=== PATIENT | female | born 1985 | race American Indian/Alaskan Native ===

== ENCOUNTER 2016-12-03 05:21 | Emergency (ER) | payer SELFPAY ==
--- NOTE | 2016-12-03 07:05 | Emergency Department Report ---
ED Extremity Problem HPI - General Chief complaint: Back Pain/Injury Stated complaint: BACK/HEAD PAIN Time Seen by Provider: 12/03/16 06:54 Source: patient Mode of arrival: Ambulatory Limitations: No Limitations - Related Data Previous Rx's Medication Instructions Recorded Last Taken Type Cyclobenzaprine [Flexeril 10 MG 10 mg PO TID PRN #30 tablet 04/01/15 Unknown Rx TAB] HYDROcodone/APAP 5-325 [[place] 1 each PO Q6HR PRN #20 tablet 04/01/15 Unknown Rx 5-325 mg TAB] Ibuprofen [Motrin 800 MG tab] 800 mg PO Q8HR PRN #50 tablet 04/01/15 Unknown Rx Loratadine [Claritin] 10 mg PO DAILY #30 tablet 04/01/15 Unknown Rx Promethazine [Phenergan TAB] 25 mg PO Q6HR PRN #20 tab 04/01/15 Unknown Rx Sulfamethoxazole/Trimethoprim 1 each PO BID #20 tablet 04/01/15 Unknown Rx [Bactrim DS TAB] Allergies Allergy/AdvReac Type Severity Reaction Status Date / Time No Known Allergies Allergy Unverified 04/01/15 09:23 ED Review of Systems ROS: Stated complaint: BACK/HEAD PAIN Other details as noted in HPI ED Past Medical Hx - Past Medical History Previous Medical History?: Yes Hx Headaches / Migraines: Yes - Surgical History Past Surgical History?: Yes Hx Appendectomy: Yes - Social History Smoking Status: Never Smoker Substance Use Type: Alcohol - Medications Home Medications: Home Medications Medication Instructions Recorded Confirmed Last Taken Type Cyclobenzaprine [Flexeril 10 MG 10 mg PO TID PRN #30 tablet 04/01/15 Unknown Rx TAB] HYDROcodone/APAP 5-325 [[place] 1 each PO Q6HR PRN #20 tablet 04/01/15 Unknown Rx 5-325 mg TAB] Ibuprofen [Motrin 800 MG tab] 800 mg PO Q8HR PRN #50 tablet 04/01/15 Unknown Rx Loratadine [Claritin] 10 mg PO DAILY #30 tablet 04/01/15 Unknown Rx Promethazine [Phenergan TAB] 25 mg PO Q6HR PRN #20 tab 04/01/15 Unknown Rx Sulfamethoxazole/Trimethoprim 1 each PO BID #20 tablet 04/01/15 Unknown Rx [Bactrim DS TAB] ED Physical Exam - General Limitations: No Limitations ED Course Vital Signs 12/03/16 05:38 Temperature 98.7 F Pulse Rate 76 Respiratory 18 Rate Blood Pressure 117/64 O2 Sat by Pulse 100 Oximetry Critical care attestation.: If time is entered above; I have spent that time in minutes in the direct care of this critically ill patient, excluding procedure time. ED Disposition Condition: Stable
--- NOTE | 2016-12-03 07:28 | Emergency Department Report ---
ED Abdominal Pain HPI - General Chief Complaint: Back Pain/Injury Stated Complaint: BACK/HEAD PAIN Time Seen by Provider: 12/03/16 06:54 Source: patient Mode of arrival: Ambulatory Limitations: No Limitations - History of Present Illness Initial Comments: Patient here complaining of abdominal pain 2 days. She states she is having strong smell to her urine. Denies any fever or chills. Denies any nausea vomiting. She says she always gets headache and she's been treated with medication. Head pain is 6 out of 10 low back pain is 7 out of 10. She says she is having lower abdominal cramping on and off. Denies any urinary burning but reports urinary frequency. She medical history is migraine. MD Complaint: abdominal pain, other (Lower back pain) Onset/Timin -: days(s) Location: LLQ Radiation: none Severity: moderate Severity scale (0 -10): 7 Quality: cramping, aching Consistency: intermittent Improves With: nothing Worsens With: nothing Context: other (possible UTI) Associated Symptoms: denies: nausea, vomiting, diarrhea, fever, chills, constipation - Related Data LMP Date: 01/05/17 Previous Rx's Medication Instructions Recorded Last Taken Type Cyclobenzaprine [Flexeril 10 MG 10 mg PO TID PRN #30 tablet 04/01/15 Unknown Rx TAB] HYDROcodone/APAP 5-325 [[place] 1 each PO Q6HR PRN #20 tablet 04/01/15 Unknown Rx 5-325 mg TAB] Loratadine [Claritin] 10 mg PO DAILY #30 tablet 04/01/15 Unknown Rx Promethazine [Phenergan TAB] 25 mg PO Q6HR PRN #20 tab 04/01/15 Unknown Rx Sulfamethoxazole/Trimethoprim 1 each PO BID #20 tablet 04/01/15 Unknown Rx [Bactrim DS TAB] Ibuprofen [Motrin 800 MG tab] 800 mg PO Q8HR PRN #15 tablet 12/03/16 Unknown Rx Nitrofurantoin Stone/M-Cryst 100 mg PO Q12HR #14 capsule 12/03/16 Unknown Rx [Macrobid CAP] Allergies Allergy/AdvReac Type Severity Reaction Status Date / Time No Known Allergies Allergy Unverified 04/01/15 09:23 ED Review of Systems ROS: Stated complaint: BACK/HEAD PAIN Other details as noted in HPI Comment: All other systems reviewed and negative Constitutional: denies: chills, fever Eyes: denies: eye discharge ENT: denies: throat pain Respiratory: no symptoms reported Cardiovascular: denies: chest pain, palpitations, edema, syncope Gastrointestinal: abdominal pain. denies: nausea, vomiting Genitourinary: frequency. denies: urgency, dysuria, hematuria, discharge, abnormal menses Musculoskeletal: back pain. denies: arthralgia Skin: denies: rash Neurological: headache ED Past Medical Hx - Past Medical History Previous Medical History?: Yes Hx Headaches / Migraines: Yes - Surgical History Past Surgical History?: Yes Hx Appendectomy: Yes - Family History Family history: no significant - Social History Smoking Status: Never Smoker Substance Use Type: Alcohol - Medications Home Medications: Home Medications Medication Instructions Recorded Confirmed Last Taken Type Cyclobenzaprine [Flexeril 10 MG 10 mg PO TID PRN #30 tablet 04/01/15 Unknown Rx TAB] HYDROcodone/APAP 5-325 [[place] 1 each PO Q6HR PRN #20 tablet 04/01/15 Unknown Rx 5-325 mg TAB] Loratadine [Claritin] 10 mg PO DAILY #30 tablet 04/01/15 Unknown Rx Promethazine [Phenergan TAB] 25 mg PO Q6HR PRN #20 tab 04/01/15 Unknown Rx Sulfamethoxazole/Trimethoprim 1 each PO BID #20 tablet 04/01/15 Unknown Rx [Bactrim DS TAB] Ibuprofen [Motrin 800 MG tab] 800 mg PO Q8HR PRN #15 tablet 12/03/16 Unknown Rx Nitrofurantoin Stone/M-Cryst 100 mg PO Q12HR #14 capsule 12/03/16 Unknown Rx [Macrobid CAP] ED Physical Exam - General Limitations: No Limitations General appearance: alert, in no apparent distress - Head Head exam: Present: atraumatic, normocephalic - Expanded Head Exam Expanded Head exam: Absent: laceration, abrasion, contusion, hematoma, racoon eyes, barfield's sign, general tenderness, tenderness of temporal artery, CSF rhinorrhea , CSF otorrhea - Eye Eye exam: Present: normal appearance, PERRL, EOMI. Absent: periorbital swelling , periorbital tenderness Pupils: Present: normal accommodation - ENT ENT exam: Present: normal exam, normal orophraynx, mucous membranes moist, TM's normal bilaterally, normal external ear exam - Neck Neck exam: Present: normal inspection, full ROM. Absent: tenderness, lymphadenopathy - Respiratory Respiratory exam: Present: normal lung sounds bilaterally. Absent: respiratory distress, chest wall tenderness - Cardiovascular Cardiovascular Exam: Present: regular rate, normal rhythm, normal heart sounds - GI/Abdominal GI/Abdominal exam: Present: soft, normal bowel sounds. Absent: distended, tenderness, guarding, rebound, rigid - Extremities Exam Extremities exam: Present: normal inspection, full ROM, normal capillary refill. Absent: tenderness, pedal edema, calf tenderness - Back Exam Back exam: Present: full ROM. Absent: tenderness, CVA tenderness (R), CVA tenderness (L), muscle spasm, paraspinal tenderness, vertebral tenderness, rash noted - Neurological Exam Neurological exam: Present: alert, oriented X3, normal gait, reflexes normal. Absent: motor sensory deficit - Expanded Neurological Exam Expanded Neurological exam: Absent: innattentive, memory loss-remote event, memory loss- recent event, ataxia, receptive aphasia, expressive aphasia, total aphasia, tremor, protecting the airway Speech: Present: fluid speech Cranial nerves: EOM's Intact: Normal, Gag Reflex: Normal, Nystagmus: Normal, Facial Sensation: Normal Cerebellar function: Romberg: Normal Upper motor neuron: Pronator Drift: Normal, Sensory Extinction: Normal Sensory exam: Upper Extremity Light Touch: Normal, Upper Extremity Temperature: Normal, UE 2 Point Discrimination: Normal, Lower Extremity Light Touch: Normal, Lower Extremity Temperature: Normal, LE 2 Point Discrimination: Normal Motor strength exam: RUE: 5, LUE: 5, RLE: 5, LLE: 5 DTR: bicep (R): 2+, bicep (L): 2+, tricep (R): 2+, tricep (L): 2+, knee (R): 2+ , knee (L): 2+, ankle (R): 2+, ankle (L): 2+ Best Eye Response ([place]): (4) open spontaneously Best Motor Response ([place]): (6) obeys commands Best Verbal Response ([place]): (5) oriented [place] Total: 15 - Psychiatric Psychiatric exam: Present: normal affect, normal mood - Skin Skin exam: Present: warm, dry, intact, normal color. Absent: rash ED Course Vital Signs 12/03/16 05:38 Temperature 98.7 F Pulse Rate 76 Respiratory 18 Rate Blood Pressure 117/64 O2 Sat by Pulse 100 Oximetry - Reevaluation(s) Reevaluation #1: 12/03/16 09:05 Patient stable [facility] ED stay ED Medical Decision Making - Lab Data Lab Results 12/03/16 Range/Units 07:29 Urine Color Yellow (Yellow) Urine Turbidity Slightly-cloudy (Clear) Urine pH 5.0 (5.0-7.0) Ur Specific [place] 1.018 (1.003-1.030) Urine Protein <15 mg/dl (Negative) mg/dL Urine Glucose (UA) Neg (Negative) mg/dL Urine Ketones Neg (Negative) mg/dL Urine Blood Neg (Negative) Urine Nitrite Pos (Negative) Urine Bilirubin Neg (Negative) Urine Urobilinogen < 2.0 (<2.0) mg/dL Ur Leukocyte Esterase Mod (Negative) Urine WBC (Auto) 26.0 H (0.0-6.0) /HPF Urine RBC (Auto) 2.0 (0.0-6.0) /HPF U Epithel Cells (Auto) 9.0 (0-13.0) /HPF Urine Bacteria (Auto) 3+ (Negative) /HPF Urine Mucus Few /HPF Urine HCG, Qual Negative (Negative) Urine culture pending - Medical Decision Making ED course: I was orally challenged in emergency room and tolerated juices well. Patient with diagnosis of acute cystitis without hematuria, back pain and abdominal pain. I discussed diagnosis and treatment plan the patient and she is in agreement and was understanding. Discharged home with prescription for Macrobid, increase her fluid intake and to follow-up with her primary care physician in 2-3 days. Discharged home with prescription for Macrobid and Motrin Critical care attestation.: If time is entered above; I have spent that time in minutes in the direct care of this critically ill patient, excluding procedure time. ED Disposition Clinical Impression: Acute cystitis without hematuria Abdominal pain Qualifiers: Abdominal location: left lower quadrant Qualified Code(s): R10.32 - Left lower quadrant pain Lower back pain Qualifiers: Chronicity: acute Back pain laterality: bilateral Sciatica presence: without sciatica Qualified Code(s): M54.5 - Low back pain Disposition: DISCHARGED TO HOME OR SELFCARE Is pt being admited?: No Does the pt Need Aspirin: No Condition: Stable Instructions: Abdominal Pain (ED), Back Pain (ED), Urinary Tract Infection in Women (ED) Additional Instructions: Please increase her fluid intake to 2-3 L of fluid per day. Take antibiotic as prescribed. Follow-up with primary care physician in 2-3 days and the have one week and follow-up with [facility]. Prescriptions: Ibuprofen [Motrin 800 MG tab] 800 mg PO Q8HR PRN #15 tablet PRN Reason: Pain Nitrofurantoin Stone/M-Cryst [Macrobid CAP] 100 mg PO Q12HR #14 capsule Referrals: PRIMARY CARE, [Primary Care Provider] - 2-3 Days [facility] [Outside] - 2-3 Days Forms: Accompanied Note, Work/School Release Form(ED)
[2016-12-03 08:47] LABS: Bacteria,Urine 3+ /HPF (Negative); Bilirubin,Urine NEG (Negative); Blood,Urine NEG (Negative); Ketones,Urine NEG (Negative); Leukocyte Esterase,Urine MOD (Negative); Mucus,Urine FEW /HPF; Nitrite,Urine POS (Negative); Protein,Urine <15 mg/dL mg/dL (Negative); Urobilinogen,Urine < 2.0 mg/dL (<2.0)
[2016-12-03 09:25] VITALS: BP 110/69
== END 2016-12-03 09:12 | disposition home or self-care (01) ==
LOC: ED 05:21
DX: N30.00 Acute cystitis without hematuria (principal); R10.32 Left lower quadrant pain; M54.5 Low back pain; G43.909 Migraine, unspecified, not intractable, without status migrainosus
CPT/HCPCS: 81001; 81025; 87076; 87086; 87186; 99283

== ENCOUNTER 2018-03-06 09:58 | Emergency (ER) | payer OTHER ==
[2018-03-06] MEDS ORDERED: TORADOL IM ONE (12:33)
[2018-03-06] MEDS ORDERED: ULTRAM PO ONE (12:33)
[2018-03-06] MEDS ORDERED: ANTIVERT PO ONE ×2 (12:42→14:41)
[2018-03-06] MEDS ORDERED: NACL 0.9% 1000 ML 1,000 ML IV ONE (12:42)
--- NOTE | 2018-03-06 12:47 | Emergency Department Report ---
Blank Doc - Documentation Documentation: 32-year-old female presents to the hospital complaining of chest pain and dizziness 3 days. Patient has sternal chest pain that is constant, worse palpation. She has mild shortness of breath. Patient complains of lightheaded and like she is on a pass out and seeing stars with standing. Patient states perhaps she is not drinking enough fluids given. She denies recent travel, calf tenderness, edema, history of PE/DVT, hypertension, diabetes, elevated cholesterol, tobacco use, cocaine abuse. Orthostatics performed to ED if patient has significant dizziness with standing although orthostatics fairly unremarkable Patient has reproducible upper and mid sternal chest wall pain Lungs clear to auscultation No calf tenderness or edema I suspect the patient has costochondritis, however given symptoms labs, chest x- ray, medications ordered EKG sinus rhythm 67 without signs of stemi Mid-level to reevaluate
--- NOTE | 2018-03-06 12:52 | Emergency Department Report ---
ED Chest Pain HPI - General Chief Complaint: Chest Pain Stated Complaint: CHEST PAIN/DIZZY Time Seen by Provider: 03/06/18 12:33 Source: patient Mode of arrival: Ambulatory Limitations: No Limitations - History of Present Illness Initial Comments: 32-year-old female presents to the hospital complaining of chest pain and dizziness 3 days. Patient has sternal chest pain that is constant, worse palpation. She has mild shortness of breath. Patient complains of lightheaded and like she is on a pass out and seeing stars with standing. Patient states perhaps she is not drinking enough fluids given. She denies recent travel, calf tenderness, edema, history of PE/DVT, hypertension, diabetes, elevated cholesterol, tobacco use, cocaine abuse. MD Complaint: chest pain, other (Dizziness) Onset/Timin -: days(s) Onset: during rest Pain Location: substernal Pain Radiation: none Severity: severe Severity scale (0 -10): 9 Quality: tightness, aching Consistency: constant Improves With: nothing Worsens With: palpation, movement Context: other (unknown) re: other (dizziness. Feeling of passing out). denies: nausea, vomting, diaphoresis, dyspnea, sense of impending doom Other Symptoms: denies: cough, fever, syncope, rash, acid taste in mouth, leg swelling, palpitations, burping Treatments Prior to Arrival: none Aspirin use within the Past 7 Days: (0) No - Related Data On Oral Contraceptives: No (last menstrual period started 03/06/2018) Previous Rx's Medication Instructions Recorded Last Taken Type Cyclobenzaprine [Flexeril 10 MG 10 mg PO TID PRN #30 tablet 04/01/15 Unknown Rx TAB] HYDROcodone/APAP 5-325 [[place] 1 each PO Q6HR PRN #20 tablet 04/01/15 Unknown Rx 5-325 mg TAB] Loratadine [Claritin] 10 mg PO DAILY #30 tablet 04/01/15 Unknown Rx Promethazine [Phenergan TAB] 25 mg PO Q6HR PRN #20 tab 04/01/15 Unknown Rx Sulfamethoxazole/Trimethoprim 1 each PO BID #20 tablet 04/01/15 Unknown Rx [Bactrim DS TAB] Ibuprofen [Motrin 800 MG tab] 800 mg PO Q8HR PRN #15 tablet 12/03/16 Unknown Rx Nitrofurantoin [place]/M-Cryst 100 mg PO Q12HR #14 capsule 12/03/16 Unknown Rx [Macrobid CAP] Ibuprofen [Motrin] 600 mg PO Q8H PRN #12 tablet 03/06/18 Unknown Rx Meclizine [Antivert] 25 mg PO TID PRN #12 tablet 03/06/18 Unknown Rx Nitrofurantoin Monohyd/M-Cryst 100 mg PO Q12H 7 Days #14 capsule 03/06/18 Unknown Rx [Macrobid 100 mg Capsule] Allergies Allergy/AdvReac Type Severity Reaction Status Date / Time No Known Allergies Allergy Verified 03/06/18 10:22 Heart Score - HEART Score History: Slightly suspicious EKG: Normal Age: < 45 Risk factors: 1-2 risk factors Troponin: < normal limit HEART Score: 1 ED Review of Systems ROS: Stated complaint: CHEST PAIN/DIZZY Other details as noted in HPI Constitutional: denies: chills, fever Eyes: eye pain ENT: denies: ear pain, throat pain, epistaxis, congestion Respiratory: shortness of breath (mild), SOB with exertion. denies: cough, SOB at rest, stridor, wheezing Cardiovascular: chest pain. denies: palpitations, dyspnea on exertion, edema, syncope, paroxysmal nocturnal dyspnea Gastrointestinal: denies: abdominal pain, nausea, vomiting, diarrhea Genitourinary: denies: urgency, dysuria, hematuria, discharge, abnormal menses, dyspareunia Musculoskeletal: denies: back pain, joint swelling, arthralgia, myalgia Skin: denies: rash, lesions Neurological: vertigo. denies: headache, weakness, numbness, paresthesias, confusion, abnormal gait, other Psychiatric: denies: anxiety, depression ED Past Medical Hx - Past Medical History Previous Medical History?: Yes Hx Headaches / Migraines: Yes Additional medical history: Polysubstance abuse - Surgical History Past Surgical History?: Yes Hx Appendectomy: Yes - Family History Family history: hypertension - Social History Smoking Status: Never Smoker Substance Use Type: Alcohol - Medications Home Medications: Home Medications Medication Instructions Recorded Confirmed Last Taken Type Cyclobenzaprine [Flexeril 10 MG 10 mg PO TID PRN #30 tablet 04/01/15 Unknown Rx TAB] HYDROcodone/APAP 5-325 [[place] 1 each PO Q6HR PRN #20 tablet 04/01/15 Unknown Rx 5-325 mg TAB] Loratadine [Claritin] 10 mg PO DAILY #30 tablet 04/01/15 Unknown Rx Promethazine [Phenergan TAB] 25 mg PO Q6HR PRN #20 tab 04/01/15 Unknown Rx Sulfamethoxazole/Trimethoprim 1 each PO BID #20 tablet 04/01/15 Unknown Rx [Bactrim DS TAB] Ibuprofen [Motrin 800 MG tab] 800 mg PO Q8HR PRN #15 tablet 12/03/16 Unknown Rx Nitrofurantoin [place]/M-Cryst 100 mg PO Q12HR #14 capsule 12/03/16 Unknown Rx [Macrobid CAP] Ibuprofen [Motrin] 600 mg PO Q8H PRN #12 tablet 03/06/18 Unknown Rx Meclizine [Antivert] 25 mg PO TID PRN #12 tablet 03/06/18 Unknown Rx Nitrofurantoin Monohyd/M-Cryst 100 mg PO Q12H 7 Days #14 capsule 03/06/18 Unknown Rx [Macrobid 100 mg Capsule] ED Physical Exam - General Limitations: No Limitations General appearance: alert, in no apparent distress - Head Head exam: Present: atraumatic, normocephalic, normal inspection, other (normal exam) - Eye Eye exam: Present: normal appearance, PERRL, EOMI. Absent: nystagmus, periorbital swelling, periorbital tenderness Pupils: Present: normal accommodation - ENT ENT exam: Present: normal exam, normal orophraynx, mucous membranes moist, TM's normal bilaterally, normal external ear exam - Neck Neck exam: Present: normal inspection, full ROM, other (no C-spine tenderness). Absent: tenderness, lymphadenopathy - Respiratory Respiratory exam: Present: normal lung sounds bilaterally. Absent: respiratory distress, chest wall tenderness - Cardiovascular Cardiovascular Exam: Present: regular rate, normal rhythm, normal heart sounds. Absent: systolic murmur, diastolic murmur - GI/Abdominal GI/Abdominal exam: Present: soft, normal bowel sounds. Absent: distended, tenderness, guarding, rebound, rigid, mass, bruit, hernia - Extremities Exam Extremities exam: Present: normal inspection, full ROM, normal capillary refill , other (no clubbing, cyanosis or edema. +2 pulses to all extremities and no neurovascular compromise). Absent: tenderness, pedal edema, joint swelling, calf tenderness - Back Exam Back exam: Present: normal inspection, full ROM. Absent: tenderness, CVA tenderness (R) - Neurological Exam Neurological exam: Present: alert, oriented X3, normal gait, reflexes normal. Absent: motor sensory deficit - Expanded Neurological Exam Expanded Neurological exam: Absent: innattentive, memory loss-remote event, memory loss- recent event, ataxia, receptive aphasia, expressive aphasia, total aphasia, tremor, protecting the airway Patient oriented to: Present: person, place, time Speech: Present: fluid speech Cranial nerves: EOM's Intact: Normal, Gag Reflex: Normal, Tongue Deviation: Normal, Nystagmus: Normal, Facial Sensation: Normal Cerebellar function: Finger to Nose: Normal, Romberg: Abnormal Right, Abnormal Left Upper motor neuron: Pronator Drift: Normal, Sensory Extinction: Normal Sensory exam: Upper Extremity Light Touch: Normal, Upper Extremity Temperature: Normal, UE 2 Point Discrimination: Normal, Lower Extremity Light Touch: Normal, Lower Extremity Temperature: Normal, LE 2 Point Discrimination: Normal Motor strength exam: RUE: 5, LUE: 5, RLE: 5, LLE: 5 Best Eye Response ([place]): (4) open spontaneously Best Motor Response ([place]): (6) obeys commands Best Verbal Response ([place]): (2) incomprehsible sounds [place] Total: 12 - Psychiatric Psychiatric exam: Present: normal affect, normal mood - Skin Skin exam: Present: warm, dry, intact, normal color. Absent: rash ED Course Vital Signs 03/06/18 03/06/18 10:23 12:59 Temperature 98.7 F Pulse Rate 75 Respiratory 16 18 Rate Blood Pressure 113/44 O2 Sat by Pulse 100 Oximetry - Reevaluation(s) Reevaluation #1: 03/06/18 13:29 Patient state. She was screened by Dr. Mcgarry. She received tramadol 50 mg by mouth, 1 L of normal saline infusing, Toradol 60 mg im and Antivert 25 mg by mouth. Patient stable in no distress Reevaluation #2: 03/06/18 15:57 Patient was remained stable throughout ED course. She received additional 25 mg of Antivert by mouth which relieved her dizziness. She did ambulate in the hallway without any dizziness present. Chest pain resolved ADAM score - Adam Score Age > 65: (0) No Aspirin use within the Past 7 Days: (0) No 3 or more CAD Risk Factors: (0) No 2 or more Angina events in past 24 hrs: (0) No Known CAD with more than 50% Stenosis: (0) No Elevated Cardiac Markers: (0) No ST Deviation Greater than 0.5mm: (0) No ADAM Score: 0 ED Medical Decision Making - Lab Data Result diagrams: 03/06/18 12:45 03/06/18 12:45 Lab Results 03/06/18 03/06/18 03/06/18 Range/Units 12:45 12:45 12:45 WBC 5.4 (4.5-11.0) K/mm3 RBC 4.61 (3.65-5.03) M/mm3 Hgb 13.9 (10.1-14.3) gm/dl Hct 41.6 (30.3-42.9) % MCV 90 (79-97) fl MCH 30 (28-32) pg MCHC 34 (30-34) % RDW 13.3 (13.2-15.2) % Plt Count 379 (140-440) K/mm3 Lymph % (Auto) 42.7 H (13.4-35.0) % [place] % (Auto) 7.8 H (0.0-7.3) % Eos % (Auto) 1.7 (0.0-4.3) % Baso % (Auto) 1.1 (0.0-1.8) % Lymph # 2.3 (1.2-5.4) K/mm3 [place] # 0.4 (0.0-0.8) K/mm3 Eos # 0.1 (0.0-0.4) K/mm3 Baso # 0.1 (0.0-0.1) K/mm3 Seg Neutrophils % 46.7 (40.0-70.0) % Seg Neutrophils # 2.5 (1.8-7.7) K/mm3 PT 13.0 (12.2-14.9) Sec. INR 0.94 (0.87-1.13) Sodium 142 (137-145) mmol/L Potassium 4.1 (3.6-5.0) mmol/L Chloride 103.9 (98-107) mmol/L Carbon Dioxide 26 (22-30) mmol/L Anion Gap 16 mmol/L BUN 16 (7-17) mg/dL Creatinine 0.7 (0.7-1.2) mg/dL Estimated GFR > 60 ml/min BUN/Creatinine Ratio 23 % Glucose 88 (65-100) mg/dL Calcium 9.7 (8.4-10.2) mg/dL Total Creatine Kinase (30-135) units/L CK-MB (CK-2) (0.0-4.0) ng/mL CK-MB (CK-2) Rel Index (0-4) Troponin T (0.00-0.029) ng/mL HCG, Qual (Negative) Urine Color (Yellow) Urine Turbidity (Clear) Urine pH (5.0-7.0) Ur Specific [place] (1.003-1.030) Urine Protein (Negative) mg/dL Urine Glucose (UA) (Negative) mg/dL Urine Ketones (Negative) mg/dL Urine Blood (Negative) Urine Nitrite (Negative) Urine Bilirubin (Negative) Urine Urobilinogen (<2.0) mg/dL Ur Leukocyte Esterase (Negative) Urine WBC (Auto) (0.0-6.0) /HPF Urine RBC (Auto) (0.0-6.0) /HPF U Epithel Cells (Auto) (0-13.0) /HPF Urine Bacteria (Auto) (Negative) /HPF Urine Mucus /HPF Urine Opiates Screen Urine Methadone Screen Ur Barbiturates Screen Ur Phencyclidine Scrn Ur Amphetamines Screen U Benzodiazepines Scrn Urine Cocaine Screen U Marijuana (THC) Screen Drugs of Abuse Note 03/06/18 03/06/18 03/06/18 Range/Units 12:45 12:45 14:05 WBC (4.5-11.0) K/mm3 RBC (3.65-5.03) M/mm3 Hgb (10.1-14.3) gm/dl Hct (30.3-42.9) % MCV (79-97) fl MCH (28-32) pg MCHC (30-34) % RDW (13.2-15.2) % Plt Count (140-440) K/mm3 Lymph % (Auto) (13.4-35.0) % [place] % (Auto) (0.0-7.3) % Eos % (Auto) (0.0-4.3) % Baso % (Auto) (0.0-1.8) % Lymph # (1.2-5.4) K/mm3 [place] # (0.0-0.8) K/mm3 Eos # (0.0-0.4) K/mm3 Baso # (0.0-0.1) K/mm3 Seg Neutrophils % (40.0-70.0) % Seg Neutrophils # (1.8-7.7) K/mm3 PT (12.2-14.9) Sec. INR (0.87-1.13) Sodium (137-145) mmol/L Potassium (3.6-5.0) mmol/L Chloride (98-107) mmol/L Carbon Dioxide (22-30) mmol/L Anion Gap mmol/L BUN (7-17) mg/dL Creatinine (0.7-1.2) mg/dL Estimated GFR ml/min BUN/Creatinine Ratio % Glucose (65-100) mg/dL Calcium (8.4-10.2) mg/dL Total Creatine Kinase 65 (30-135) units/L CK-MB (CK-2) 1.3 (0.0-4.0) ng/mL CK-MB (CK-2) Rel Index 2.0 (0-4) Troponin T < 0.010 (0.00-0.029) ng/mL HCG, Qual Negative (Negative) Urine Color Yellow (Yellow) Urine Turbidity Clear (Clear) Urine pH 5.0 (5.0-7.0) Ur Specific [place] 1.030 (1.003-1.030) Urine Protein 100 mg/dl (Negative) mg/dL Urine Glucose (UA) Neg (Negative) mg/dL Urine Ketones Neg (Negative) mg/dL Urine Blood Lg (Negative) Urine Nitrite Neg (Negative) Urine Bilirubin Neg (Negative) Urine Urobilinogen 2.0 (<2.0) mg/dL Ur Leukocyte Esterase Mod (Negative) Urine WBC (Auto) 45.0 H (0.0-6.0) /HPF Urine RBC (Auto) > 182.0 (0.0-6.0) /HPF U Epithel Cells (Auto) 3.0 (0-13.0) /HPF Urine Bacteria (Auto) 2+ (Negative) /HPF Urine Mucus 3+ /HPF Urine Opiates Screen Urine Methadone Screen Ur Barbiturates Screen Ur Phencyclidine Scrn Ur Amphetamines Screen U Benzodiazepines Scrn Urine Cocaine Screen U Marijuana (THC) Screen Drugs of Abuse Note 03/06/18 Range/Units Unknown WBC (4.5-11.0) K/mm3 RBC (3.65-5.03) M/mm3 Hgb (10.1-14.3) gm/dl Hct (30.3-42.9) % MCV (79-97) fl MCH (28-32) pg MCHC (30-34) % RDW (13.2-15.2) % Plt Count (140-440) K/mm3 Lymph % (Auto) (13.4-35.0) % [place] % (Auto) (0.0-7.3) % Eos % (Auto) (0.0-4.3) % Baso % (Auto) (0.0-1.8) % Lymph # (1.2-5.4) K/mm3 [place] # (0.0-0.8) K/mm3 Eos # (0.0-0.4) K/mm3 Baso # (0.0-0.1) K/mm3 Seg Neutrophils % (40.0-70.0) % Seg Neutrophils # (1.8-7.7) K/mm3 PT (12.2-14.9) Sec. INR (0.87-1.13) Sodium (137-145) mmol/L Potassium (3.6-5.0) mmol/L Chloride (98-107) mmol/L Carbon Dioxide (22-30) mmol/L Anion Gap mmol/L BUN (7-17) mg/dL Creatinine (0.7-1.2) mg/dL Estimated GFR ml/min BUN/Creatinine Ratio % Glucose (65-100) mg/dL Calcium (8.4-10.2) mg/dL Total Creatine Kinase (30-135) units/L CK-MB (CK-2) (0.0-4.0) ng/mL CK-MB (CK-2) Rel Index (0-4) Troponin T (0.00-0.029) ng/mL HCG, Qual (Negative) Urine Color (Yellow) Urine Turbidity (Clear) Urine pH (5.0-7.0) Ur Specific [place] (1.003-1.030) Urine Protein (Negative) mg/dL Urine Glucose (UA) (Negative) mg/dL Urine Ketones (Negative) mg/dL Urine Blood (Negative) Urine Nitrite (Negative) Urine Bilirubin (Negative) Urine Urobilinogen (<2.0) mg/dL Ur Leukocyte Esterase (Negative) Urine WBC (Auto) (0.0-6.0) /HPF Urine RBC (Auto) (0.0-6.0) /HPF U Epithel Cells (Auto) (0-13.0) /HPF Urine Bacteria (Auto) (Negative) /HPF Urine Mucus /HPF Urine Opiates Screen Presumptive negative Urine Methadone Screen Presumptive negative Ur Barbiturates Screen Presumptive negative Ur Phencyclidine Scrn Presumptive negative Ur Amphetamines Screen Presumptive positive U Benzodiazepines Scrn Presumptive negative Urine Cocaine Screen Presumptive negative U Marijuana (THC) Screen Presumptive positive Drugs of Abuse Note Disclamer Urine culture pending - EKG Data -: EKG Interpreted by Me (attending physician) EKG shows normal: sinus rhythm (67 bpm) Rate: normal - EKG Data Interpretation: no acute changes, normal EKG - Radiology Data Radiology results: report reviewed Patient had CT scan of the head and brain without contrast and chest x-ray done. Dictated by radiologist and reports from his cell and no acute findings. Patient with incidental findings and CT scan for subacute mandibular fracture which radiologist said is an old fracture. Patient denies any previous injury to facial area. Findings Patient: REBECCA WAYNE MR#: [id number] : 1985 Acct:[id number] Age/Sex: 32 / F ADM Date: 03/06/18 Loc: ED Attending Dr: Ordering Physician: JOLIE MCGARRY MD Date of Service: 03/06/18 Procedure(s): XR chest routine 2V Accession Number(s): [id number] cc: JOLIE MCGARRY MD Fluoro Time In Minutes: ROUTINE CHEST, TWO VIEWS: HISTORY: Chest pain, dizziness. The trachea, heart, mediastinal contour, lung painter and bony thorax are unremarkable. IMPRESSION: Unremarkable chest x-ray. Transcribed By: TTR Dictated By: JAYLA HERNANDEZ JR, MD Electronically Authenticated By: JAYLA HERNANDEZ JR, MD Signed Date/Time: 03/06/18 1400 DD/ 1359 TD/TT: 03/06/18 1400 Patient: REBECCA WAYNE MR#: [id number] : 1985 Acct:[id number] Age/Sex: 32 / F ADM Date: 03/06/18 Loc: ED Attending Dr: Ordering Physician: EMILY ZENDEJAS Date of Service: 03/06/18 Procedure(s): CT head/brain wo con Accession Number(s): [id number] cc: EMILY ZENDEJAS CT HEAD WITHOUT CONTRAST: HISTORY: Dizziness. TECHNIQUE: Sequential 2.5mm CT images. COMPARISON: none. FINDINGS: Cerebral Parenchyma: Within normal limits. Cerebellum: Within normal limits. Brainstem: Within normal limits. Ventricles: Normal. Sella: Normal. Extra-axial spaces: Normal. Basal Cisterns: Normal. Intracranial Hemorrhage: None. Midline Shift: None. Calvarium: Normal. Sinuses: Normal. Mastoid Air Cells: Normal. Visualized Orbits: Normal. There appears to be abnormal articulation at the left temporomandibular joint which is only partially imaged on this exam. This could represent subluxation or previous trauma. Please correlate with the patient. I suspect this is a chronic finding. IMPRESSION: Cranial CT scan within normal limits. Slightly abnormal left temporomandibular joint, see above. Transcribed By: TTR Dictated By: JAYLA HERNANDEZ JR, MD Electronically Authenticated By: JAYLA HERNANDEZ JR, MD Signed Date/Time: 03/06/181456 DD/ 55 TD/TT: 03/06/181456 - Medical Decision Making This is a 32-year-old female well-nourished well-developed in no acute distress. Patient's reporting of chest pain and dizziness with mild shortness of breath. She does not have any medical problems. She is here to be evaluated. She was evaluated by myself and physical exam normal except she has positive Romberg bilaterally underlies exam. Her chest exam with reproducible chest pain to midsternal area. Other exam is normal. Patient complain any dizziness or room spinning around when she sits up. She has congested TMs with pale boggy nasal mucosa and clear drainage. Laboratory findings in stable except for urinalysis with positive white cell, positive leukocyte esterase, positive bacteria . Urine culture sent and her urine drug screen is positive for methamphetamine and marijuana. test is negative. Chest x-ray and CT scan of the head and brain without contrast dictated by radiologist and reports reviewed by myself and patient has no acute finding except she is incidental finding for subacute Slightly abnormal left . PT able to open and close her mouth without any difficulties. She has no tenderness or crepitus to TMJ. She denies any previous injury to area. I discussed diagnosis, laboratory findings and CT scan the patient and she voiced understanding. Patient with rhinitis, vertigo, costochondritis and urinary tract infection, and polysubstance abuse. She was given tramadol 50 mg by mouth for pain, Toradol 60 mg IM which relieved her pain Antivert 25 mg in 2 doses for a total of 50 mg for dizziness which relieved her dizziness and she was given normal saline 1 L IV fluid. Orthostatic vital signs stable. She is not able to ambulate in the room without any dizziness. Educated on polysubstance abuse and effect on her blood pressure, heart rate, brain, kidneys and hard. I discussed her diagnosis, treatment plan and need to follow-up with primary care physician. She doesn't have a primary care physician so I will refer her to [facility] and also to cardiology for further testing Patient discharged from the emergency room stable condition with prescription for Motrin. Her vital signs establishes a febrile. She says she is feeling better and to follow up with [facility] in 2 days and cardiology in 2-3 days. She voiced understanding and discharged home with prescription for Motrin , Macrobid and Antivert - Differential Diagnosis ACS, costochondritis, drug abuse, PNA, bronchitis, URI Critical care attestation.: If time is entered above; I have spent that time in minutes in the direct care of this critically ill patient, excluding procedure time. ED Disposition Clinical Impression: Costochondritis, Polysubstance abuse, Vertigo Rhinitis Qualifiers: Rhinitis type: unspecified Qualified Code(s): J31.0 - Chronic rhinitis Disposition: - TO HOME OR SELFCARE Is pt being admited?: No Does the pt Need Aspirin: No Condition: Stable Instructions: Vertigo (ED), Costochondritis (ED), Allergic Rhinitis (ED), Polysubstance Abuse (ED) Additional Instructions: Please refrain from use then illicit drugs such as marijuana and methamphetamine. Follow-up with [facility] in 2 days for primary care visit Follow-up with cardiology as instructed for chest pain. Take Motrin as prescribed for pain Take Antivert for dizziness Prescriptions: Ibuprofen [Motrin] 600 mg PO Q8H PRN #12 tablet PRN Reason: Pain Meclizine [Antivert] 25 mg PO TID PRN #12 tablet PRN Reason: Vertigo Nitrofurantoin Monohyd/M-Cryst [Macrobid 100 mg Capsule] 100 mg PO Q12H 7 Days # 14 capsule Referrals: PRIMARY CAREMD [Primary Care Provider] - 03/08/18 [facility] [Outside] - 03/08/18 CHALINO GOMEZ MD [Staff Physician] - 2-3 Days Forms: Work/School Release Form(ED)
[2018-03-06 13:07] LABS: Basophils # (Auto) 0.1 K/mm3 (0.0-0.1); Basophils % (Auto) 1.1 % (0.0-1.8); Eosinophils # (Auto) 0.1 K/mm3 (0.0-0.4); Eosinophils % (Auto) 1.7 % (0.0-4.3); Hematocrit 41.6 % (30.3-42.9); Hemoglobin 13.9 gm/dl (10.1-14.3); Lymphocytes # (Auto) 2.3 K/mm3 (1.2-5.4); Lymphocytes % (Auto) 42.7 % (13.4-35.0); Mean Corpuscular HGB Conc 34 % (30-34); Mean Corpuscular Hemoglobin 30 pg (28-32); Mean Corpuscular Volume 90 fl (79-97); Monocytes # (Auto) 0.4 K/mm3 (0.0-0.8); Monocytes % (Auto) 7.8 % (0.0-7.3); Platelet Count 379 K/mm3 (140-440); Red Blood Count 4.61 M/mm3 (3.65-5.03); Red Cell Distribution Width 13.3 % (13.2-15.2)
[2018-03-06 13:17] LABS: BUN/Creatinine Ratio 23; Blood Urea Nitrogen 16 mg/dL (7-17); Calcium 9.7 mg/dL (8.4-10.2); Hemolysis Index 7
[2018-03-06 13:19] LABS: Creatine Kinase MB 1.3 ng/mL (0.0-4.0)
[2018-03-06 13:20] LABS: INR 0.94 (0.87-1.13)
--- NOTE | 2018-03-06 14:22 | XRay Report ---
ROUTINE CHEST, TWO VIEWS: HISTORY: Chest pain, dizziness. The trachea, heart, mediastinal contour, lung painter and bony thorax are unremarkable. IMPRESSION: Unremarkable chest x-ray.
[2018-03-06 14:55] LABS: Bacteria,Urine 2+ /HPF (Negative); Bilirubin,Urine NEG (Negative); Blood,Urine LG (Negative); Color,Urine Yellow (Yellow); Mucus,Urine 3+ /HPF
[2018-03-06 14:57] LABS: RBC,Urine > 182.0 /HPF (0.0-6.0)
[2018-03-06 14:58] LABS: Benzodiazepines Screen,Urine PRESUMPTIVE NEGATIVE; Cocaine Screen,Urine PRESUMPTIVE NEGATIVE; Methadone Screen,Urine PRESUMPTIVE NEGATIVE; Opiate Screen,Urine PRESUMPTIVE NEGATIVE
--- NOTE | 2018-03-06 15:19 | Cat Scan Report ---
CT HEAD WITHOUT CONTRAST: HISTORY: Dizziness. TECHNIQUE: Sequential 2.5mm CT images. COMPARISON: none. FINDINGS: Cerebral Parenchyma: Within normal limits. Cerebellum: Within normal limits. Brainstem: Within normal limits. Ventricles: Normal. Sella: Normal. Extra-axial spaces: Normal. Basal Cisterns: Normal. Intracranial Hemorrhage: None. Midline Shift: None. Calvarium: Normal. Sinuses: Normal. Mastoid Air Cells: Normal. Visualized Orbits: Normal. There appears to be abnormal articulation at the left temporomandibular joint which is only partially imaged on this exam. This could represent subluxation or previous trauma. Please correlate with the patient. I suspect this is a chronic finding. IMPRESSION: Cranial CT scan within normal limits. Slightly abnormal left temporomandibular joint, see above.
[2018-03-06 15:20] LABS: Amphetamine Screen,Urine PRESUMPTIVE POSITIVE; Cannabinoid Screen,Urine PRESUMPTIVE POSITIVE
[2018-03-06 16:32] VITALS: BP 126/74
== END 2018-03-06 16:30 | disposition home or self-care (01) ==
LOC: ED 09:58
DX: M94.0 Chondrocostal junction syndrome [Tietze] (principal); R42 Dizziness and giddiness; J31.0 Chronic rhinitis; F19.10 Other psychoactive substance abuse, uncomplicated; G43.909 Migraine, unspecified, not intractable, without status migrainosus; Z90.89 Acquired absence of other organs; Z79.899 Other long term (current) drug therapy
CPT/HCPCS: 36415; 70450; 71046; 80048; 80307; 81001; 82550; 82553; 84484; 84703; 85025; 85610; 93005; 93010; 96360; 96361; 96372; 99284; J1885; J7030

== ENCOUNTER 2021-10-26 10:30 | Emergency (ER) | payer SELFPAY ==
--- NOTE | 2021-10-26 12:10 | Emergency Department Report ---
ED Lower Extremity HPI - General Chief Complaint: Extremity Injury, Lower Stated Complaint: FELL INJURED FOOT Time Seen by Provider: 10/26/21 11:55 Source: patient Mode of arrival: Ambulatory Limitations: No Limitations - History of Present Illness Initial Comments: Patient presented to her left hip pain. She had fallen several days ago and hyperflexed it. The pain has been persistent. It is actually gotten worse in her opinion. She cannot bear weight. She states she just cannot stand the pain any longer. pain is constant and aching. She has never injured her foot before. There is no ankle pain. Pain is only in the dorsum of the foot. She has no other injury from the fall. She has taken xsam-krk-ajearrd medication without symptomatic measures. She has tried ice and elevation. This did not seem to help. - Related Data Previous Rx's Medication Instructions Recorded Last Taken Type Loratadine (Nf) [Claritin] 10 mg PO DAILY #30 tablet 04/01/15 Unknown Rx Promethazine [Phenergan TAB] 25 mg PO Q6HR PRN #20 tab 04/01/15 Unknown Rx Meclizine [Antivert] 25 mg PO TID PRN #12 tablet 03/06/18 Unknown Rx Nitrofurantoin Monohyd/M-Cryst 100 mg PO Q12H 7 Days #14 capsule 03/06/18 Unknown Rx [Macrobid 100 mg Capsule] HYDROcodone/APAP 5-325 [[place] 1 each PO Q6HR PRN #20 tablet 10/26/21 Unknown Rx 5-325 mg TAB] Ibuprofen [Motrin 800 MG tab] 800 mg PO Q8HR PRN #15 tablet 10/26/21 Unknown Rx Allergies Allergy/AdvReac Type Severity Reaction Status Date / Time No Known Allergies Allergy Verified 10/26/21 11:53 ED Review of Systems ROS: Stated complaint: FELL INJURED FOOT Other details as noted in HPI Comment: All other systems reviewed and negative Constitutional: denies: fever Eyes: denies: eye pain ENT: denies: throat pain Respiratory: denies: cough Cardiovascular: denies: chest pain Endocrine: denies: unexplained weight loss Gastrointestinal: denies: abdominal pain Genitourinary: denies: dysuria Musculoskeletal: denies: back pain Skin: denies: rash Neurological: denies: headache Hematological/Lymphatic: denies: easy bruising ED Past Medical Hx - Past Medical History Hx Headaches / Migraines: Yes Additional medical history: Polysubstance abuse - Surgical History Hx Appendectomy: Yes - Family History Family history: no significant - Social History Smoking Status: Never Smoker Substance Use Type: None - Medications Home Medications: Home Medications Medication Instructions Recorded Confirmed Last Taken Type Loratadine (Nf) [Claritin] 10 mg PO DAILY #30 tablet 04/01/15 10/26/21 Unknown Rx Promethazine [Phenergan TAB] 25 mg PO Q6HR PRN #20 tab 04/01/15 10/26/21 Unknown Rx Meclizine [Antivert] 25 mg PO TID PRN #12 tablet 03/06/18 10/26/21 Unknown Rx Nitrofurantoin Monohyd/M-Cryst 100 mg PO Q12H 7 Days #14 capsule 03/06/18 10/26/21 Unknown Rx [Macrobid 100 mg Capsule] HYDROcodone/APAP 5-325 [[place] 1 each PO Q6HR PRN #20 tablet 10/26/21 Unknown Rx 5-325 mg TAB] Ibuprofen [Motrin 800 MG tab] 800 mg PO Q8HR PRN #15 tablet 10/26/21 Unknown Rx ED Physical Exam - General Limitations: No Limitations, Other (Pulse ox noted and normal) General appearance: alert, in no apparent distress - Head Head exam: Present: atraumatic, normocephalic - Eye Eye exam: Present: normal appearance, EOMI - ENT ENT exam: Present: normal external ear exam - Neck Neck exam: Present: normal inspection - Respiratory Respiratory exam: Absent: respiratory distress - Cardiovascular Cardiovascular Exam: Absent: JVD - Extremities Exam Extremities exam: Present: normal capillary refill, other (Tenderness and edema noted to the dorsum of the left foot. There is no ankle involvement. Distal cap refill is brisk. Sensation is intact. Pulses are equal and symmetric.) - Back Exam Back exam: Absent: CVA tenderness (R), CVA tenderness (L) - Neurological Exam Neurological exam: Present: alert, oriented X3, CN II-XII intact, other (Gait not assessed due to foot pain). Absent: motor sensory deficit - Psychiatric Psychiatric exam: Present: normal affect, normal mood - Skin Skin exam: Present: warm, dry ED Course Vital Signs 10/26/21 10/26/21 10:38 11:52 Temperature 98.6 F 97.6 F Pulse Rate 62 74 Respiratory 18 16 Rate Blood Pressure 123/68 Blood Pressure 97/61 [Right] O2 Sat by Pulse 100 99 Oximetry - Reevaluation(s) Reevaluation #1: 10/26/21 12:10 X-rays ordered. Old records noted. Reevaluation #2: 10/26/21 12:49 Radiographs are noted. Splint was ordered. Patient was discharged. - Procedure Description Procedures done: Procedure note: Splint application. Indication: Foot fracture. Patient was seated. A short leg posterior splint was placed with Ortho-Glass. This was molded into position. This was done by the ED staff my direct sup ervision. After the splint was applied, patient was capillary fill and normal sensation of the toes. She had tolerated this without difficulty. There are no complications. ED Lower Extremity MDM - Radiology Data Radiology results: report reviewed Patient presents secondary for pain. She is found to have a fracture without obvious distress of the Lisfranc joint. Patient has been immobilized. She been given crutches. She was referred to orthopedic surgery. I do not anticipate surgical involvement. Patient can follow-up with orthopedics in 7 days. Patient has no ankle injury. There is no other traumatic injury noted. The joint has been stabilized with splinting using Ortho-Glass. Critical Care Time: No Critical care attestation.: If time is entered above; I have spent that time in minutes in the direct care of this critically ill patient, excluding procedure time. ED Disposition Clinical Impression: Metatarsal fracture Qualifiers: Encounter type: initial encounter Metatarsal bone: second Fracture type: closed Fracture alignment: nondisplaced Laterality: left Qualified Code(s): S92.325A - Nondisplaced fracture of second metatarsal bone, left foot, initial encounter for closed fracture Fracture of third metatarsal bone Qualifiers: Encounter type: initial encounter Fracture type: closed Fracture alignment: nondisplaced Laterality: left Qualified Code(s): S92.335A - Nondisplaced fracture of third metatarsal bone, left foot, initial encounter for closed fracture Fracture of fourth metatarsal bone Qualifiers: Encounter type: initial encounter Fracture type: closed Fracture alignment: nondisplaced Laterality: left Qualified Code(s): S92.345A - Nondisplaced fracture of fourth metatarsal bone, left foot, initial encounter for closed fracture Disposition: HOME / SELF CARE / HOMELESS Is pt being admited?: No Condition: Stable Instructions: Cast or Splint Care, Adult, [id number], Metatarsal Fracture Additional Instructions: Ice and elevate. Use the crutches and splint. Follow-up with orthopedics as referred. Return for any problems or concerns. Do not drive while taking pain medication. Prescriptions: Ibuprofen [Motrin 800 MG tab] 800 mg PO Q8HR PRN #15 tablet PRN Reason: Pain HYDROcodone/APAP 5-325 [Alpine 5-325 mg TAB] 1 each PO Q6HR PRN #20 tablet PRN Reason: Pain Referrals: PRIMARY CARE, [Referring] - 3-5 Days ESTEFANÍA PAVON MD [Staff Physician] - 3-5 Days VI TIWARI MD [Staff Physician] - 7-10 days
--- NOTE | 2021-10-26 12:44 | XRay Report ---
XR foot 3+V LT INDICATION / CLINICAL INFORMATION: fall. COMPARISON: None available. FINDINGS: There are mildly displaced fractures in the bases of the second, third, and fourth metatarsals. TMT j oint alignment appears normal. Signer Name: Landon No MD Signed: 10/26/2021 12:39 PM Workstation Name: [id number]
[2021-10-26 13:49] VITALS: BP 145/77
== END 2021-10-26 14:00 | disposition home or self-care (01) ==
LOC: ED 10:30
DX: S92.332A Displaced fracture of third metatarsal bone, left foot, initial encounter for closed fracture (principal); S92.342A Displaced fracture of fourth metatarsal bone, left foot, initial encounter for closed fracture; G43.909 Migraine, unspecified, not intractable, without status migrainosus; Z90.49 Acquired absence of other specified parts of digestive tract; Z79.899 Other long term (current) drug therapy; W18.39XA Other fall on same level, initial encounter; Y93.89 Activity, other specified; Y92.89 Other specified places as the place of occurrence of the external cause; Y99.8 Other external cause status
CPT/HCPCS: 99283

== ENCOUNTER 2021-11-15 11:06 | Emergency (ER) | payer SELFPAY ==
[2021-11-15 15:22] LABS: Hematocrit 39.1 % (30.3-42.9); Hemoglobin 13.1 gm/dl (10.1-14.3); Mean Corpuscular HGB Conc 34 % (30-34); Mean Corpuscular Volume 91 fl (79-97); Platelet Count 363 K/mm3 (140-440); Red Blood Count 4.28 M/mm3 (3.65-5.03); Red Cell Distribution Width 14.2 % (13.2-15.2)
--- NOTE | 2021-11-15 15:24 | Emergency Department Report ---
ED Shortness of Breath HPI - General Chief Complaint: Dyspnea/Respdistress Stated Complaint: SOB Time Seen by Provider: 11/15/21 14:08 Source: patient Mode of arrival: Ambulatory Limitations: No Limitations - History of Present Illness Initial Comments: 36-year-old black female with no past medical history presents to the emergency department for 3-day history of shortness of breath and chest pain. She denies nausea, vomiting, dizziness, diaphoresis, and hemoptysis. She states that pain at its worst is 6 out of 10, its intermittent, and it is a pressure in the center of her chest. Pain is nonradiating and nonreproducible. She states that she fractured her foot 1 month ago. MD Complaint: shortness of breath, chest pain -: Gradual, days(s) (3) Severity: moderate Pain Scale: 6 Quality: aching Consistency: intermittent Known History Of: other (Recent fracture) Associated Symptoms: chest pain Treatments Prior to Arrival: none - Related Data Home Oxygen Therapy: No Previous Rx's Medication Instructions Recorded Last Taken Type Loratadine (Nf) [Claritin] 10 mg PO DAILY #30 tablet 04/01/15 Unknown Rx Promethazine [Phenergan TAB] 25 mg PO Q6HR PRN #20 tab 04/01/15 Unknown Rx Meclizine [Antivert] 25 mg PO TID PRN #12 tablet 03/06/18 Unknown Rx Nitrofurantoin Monohyd/M-Cryst 100 mg PO Q12H 7 Days #14 capsule 03/06/18 Unknown Rx [Macrobid 100 mg Capsule] HYDROcodone/APAP 5-325 [[place] 1 each PO Q6HR PRN #20 tablet 10/26/21 Unknown Rx 5-325 mg TAB] Ibuprofen [Motrin 800 MG tab] 800 mg PO Q8HR PRN #15 tablet 10/26/21 Unknown Rx Allergies Allergy/AdvReac Type Severity Reaction Status Date / Time No Known Allergies Allergy Verified 10/26/21 11:53 ED Review of Systems ROS: Stated complaint: SOB Other details as noted in HPI Comment: All other systems reviewed and negative Constitutional: denies: chills, fever Respiratory: shortness of breath, SOB with exertion, SOB at rest. denies: cough Cardiovascular: chest pain, dyspnea on exertion. denies: palpitations, orthopnea, edema, syncope Gastrointestinal: denies: abdominal pain, nausea, vomiting, diarrhea, hematemesis, melena, hematochezia Musculoskeletal: denies: back pain Neurological: denies: headache, weakness Psychiatric: denies: anxiety ED Past Medical Hx - Past Medical History Hx Headaches / Migraines: Yes Additional medical history: Polysubstance abuse - Surgical History Hx Appendectomy: Yes - Social History Smoking Status: Never Smoker Substance Use Type: None - Medications Home Medications: Home Medications Medication Instructions Recorded Confirmed Last Taken Type Loratadine (Nf) [Claritin] 10 mg PO DAILY #30 tablet 04/01/15 10/26/21 Unknown Rx Promethazine [Phenergan TAB] 25 mg PO Q6HR PRN #20 tab 04/01/15 10/26/21 Unknown Rx Meclizine [Antivert] 25 mg PO TID PRN #12 tablet 03/06/18 10/26/21 Unknown Rx Nitrofurantoin Monohyd/M-Cryst 100 mg PO Q12H 7 Days #14 capsule 03/06/18 10/26/21 Unknown Rx [Macrobid 100 mg Capsule] HYDROcodone/APAP 5-325 [[place] 1 each PO Q6HR PRN #20 tablet 10/26/21 Unknown Rx 5-325 mg TAB] Ibuprofen [Motrin 800 MG tab] 800 mg PO Q8HR PRN #15 tablet 10/26/21 Unknown Rx ED Physical Exam - General Limitations: No Limitations General appearance: alert, in no apparent distress - Head Head exam: Present: atraumatic, normocephalic - Eye Eye exam: Present: normal appearance. Absent: conjunctival injection - Neck Neck exam: Present: normal inspection. Absent: tenderness - Respiratory Respiratory exam: Present: normal lung sounds bilaterally. Absent: respiratory distress, wheezes, rales, rhonchi, stridor, chest wall tenderness - Cardiovascular Cardiovascular Exam: Present: regular rate, normal heart sounds - GI/Abdominal GI/Abdominal exam: Present: soft, normal bowel sounds. Absent: distended, tenderness, guarding, rigid - Extremities Exam Extremities exam: Present: normal inspection, full ROM, normal capillary refill. Absent: calf tenderness - Back Exam Back exam: Present: normal inspection. Absent: tenderness, CVA tenderness (R), CVA tenderness (L) - Neurological Exam Neurological exam: Present: alert, oriented X3 - Psychiatric Psychiatric exam: Present: normal affect, normal mood - Skin Skin exam: Present: warm, dry, intact, normal color ED Course Vital Signs 11/15/21 11/15/21 11:45 17:43 Temperature 97.9 F Pulse Rate 78 77 Respiratory 18 16 Rate Blood Pressure 134/77 122/81 [Right] O2 Sat by Pulse 98 98 Oximetry ED Medical Decision Making - Lab Data Result diagrams: 11/15/21 14:48 11/15/21 14:48 - EKG Data Interpretation: no acute changes 11/15/21 18:34 No acute ischemic changes noted - Radiology Data Radiology results: report reviewed, image reviewed Chest x-ray: FINDINGS: Support devices: None. Heart: Within normal limits. Lungs/Pleura: No acute air space or interstitial disease. No significant pleural effusion. IMPRESSION: No acute findings. - Medical Decision Making 36-year-old black female with no past medical history presents to the emergency department for 3-day history of shortness of breath and chest pain. She denies nausea, vomiting, dizziness, diaphoresis, and hemoptysis.. She states that pain at its worst is 6 out of 10, its intermittent, and it is a pressure in the center of her chest. Pain is nonradiating and nonreproducible. She states that she fractured her foot 1 month ago. No gross abnormalities noted on exam or on labs. EKG and chest x-ray within normal limits. D-dimer negative, no lower extremity or calf pain, tenderness or swelling, and heart rate within normal limits, therefore low suspicion for PE or DVT (Well's score for PE equals 0 or low risk). Chest pain improved after medication. Patient will be discharged home to follow-up with her primary care provider for further evaluation and management. She verbalized understanding of and agreement with plan of care. Critical care attestation.: If time is entered above; I have spent that time in minutes in the direct care of this critically ill patient, excluding procedure time. ED Disposition Clinical Impression: SOB (shortness of breath) Disposition: 01 HOME / SELF CARE / HOMELESS Is pt being admited?: No Does the pt Need Aspirin: No Condition: Stable Instructions: Shortness of Breath, Adult, [id number] Additional Instructions: Follow-up with your primary care provider for further evaluation and management. Referrals: MICHAEL COTTON MD [Referring] - 3-5 Days RAFA BANKS MD [Staff Physician] - 3-5 Days Time of Disposition: 17:36
[2021-11-15 15:30] LABS: Alanine Aminotransferase 9 units/L (7-56); Albumin 4.4 g/dL (3.9-5); BUN/Creatinine Ratio 25; Blood Urea Nitrogen 15 mg/dL (7-17); Calcium 9.4 mg/dL (8.4-10.2); Hemolysis Index 5
--- NOTE | 2021-11-15 16:09 | XRay Report ---
CHEST 2 VIEWS INDICATION: chest pain. COMPARISON: 10/07/2017 FINDINGS: Support devices: None. Heart: Within normal limits. Lungs/Pleura: No acute air space or interstitial disease. No significant pleural effusion. IMPRESSION: No acute findings. Signer Name: Vinny Marsh MD Signed: 11/15/2021 4:05 PM Workstation Name: [id number]
[2021-11-15] MEDS: KETOROLAC 10 MG TAB PO ONE (16:25)
[2021-11-15 16:27] LABS: Bilirubin,Urine NEG (Negative); Blood,Urine NEG (Negative); Color,Urine Yellow (Yellow); Mucus,Urine FEW /HPF; Protein,Urine <15 mg/dL mg/dL (Negative); Urobilinogen,Urine < 2.0 mg/dL (<2.0)
[2021-11-15 17:44] VITALS: BP 122/81
--- NOTE | 2021-11-17 14:18 | Electrocardiograph Report ---
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
== END 2021-11-15 17:44 | disposition home or self-care (01) ==
LOC: ED 11:06
DX: R06.02 Shortness of breath (principal); R07.89 Other chest pain; G43.909 Migraine, unspecified, not intractable, without status migrainosus; Z90.49 Acquired absence of other specified parts of digestive tract; Z79.899 Other long term (current) drug therapy
CPT/HCPCS: 36415; 71046; 80053; 81001; 84484; 84703; 85027; 85379; 93005; 99283